=== PATIENT | female | born 2005 | race African-American/Black ===

== ENCOUNTER 2024-10-07 15:31 | Emergency (ER) | payer MEDICAID ==
[~2024-10-07] VITALS: Ht 165.1 cm; Wt 90.7 kg
[2024-10-07 15:35] VITALS: O2SAT 100
[2024-10-07 15:58] VITALS: BP 128/65; PULSE 89; RESP 14; TEMP 36.7; O2SAT 100
== END 2024-10-07 19:04 | disposition left against medical advice (07) ==
LOC: ER 15:31
DX: R07.9 Chest pain, unspecified (principal); Z53.21 Procedure and treatment not carried out due to patient leaving prior to being seen by health care provider